=== PATIENT | male | born 1985 | race Caucasian/White ===

== ENCOUNTER 2016-12-31 15:29 | Emergency (ER) | payer OTHER ==
[2016-12-31 15:33] VITALS: BP 122/87; PULSE 81; TEMP 98; BMI 36.6
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
== END 2016-12-31 17:00 | disposition home or self-care (01) ==
LOC: JERFT 15:29
DX: Z48.02 Encounter for removal of sutures (principal)
CPT/HCPCS: 99281-25

== ENCOUNTER 2017-04-15 14:09 | Emergency (ER) | payer OTHER ==
[2017-04-15 14:14] VITALS: BP 138/96; PULSE 74; TEMP 98.3; BMI 38.2
--- NOTE | 2017-04-15 14:41 | PDOC ---
*Physical Exam - Vital Signs Last Vital Signs Temp Pulse Resp BP Pulse Ox 98.3 F 74 20 138/96 100 04/15/17 14:10 04/15/17 14:10 04/15/17 14:10 04/15/17 14:10 04/15/17 14:10
--- NOTE | 2017-04-15 15:17 | PDOC ---
History of Present Illness - General Chief Complaint: Chest Pain Stated Complaint: CHEST PAIN Time Seen by Provider: 04/15/17 14:31 History Source: Patient - History of Present Illness Presenting Symptoms: Chest Pain Timing/Duration: reports: intermittent Past History - Past Medical History Allergies/Adverse Reactions: Allergies Allergy/AdvReac Type Severity Reaction Status Date / Time No Known Allergies Allergy Verified 04/15/17 14:14 Home Medications: Ambulatory Orders NK [No Known Home Medication] 12/31/16 Other medical history: NONE - Psycho/Social/Smoking Cessation Hx Anxiety: No Suicidal Ideation: No Smoking History: Current every day smoker Number of Cigarettes Smoked Daily: 15 Information on smoking cessation initiated: Yes 'Breaking Loose' booklet given: 04/15/17 Hx Alcohol Use: Yes (SOCIAL) Drug/Substance Use Hx: No Substance Use Type: None Review of Systems - Review of Systems Constitutional: No: Chills, Fever, Unexplained wgt Loss Respiratory: No: Cough, Shortness of Breath Cardiac (ROS): Yes: Chest Pain. No: Lightheadedness, Palpitations, Syncope Neurological: No: Dizziness *Physical Exam - Vital Signs Last Vital Signs Temp Pulse Resp BP Pulse Ox 98.3 F 74 20 138/96 100 04/15/17 14:10 04/15/17 14:10 04/15/17 14:10 04/15/17 14:10 04/15/17 14:10 - Physical Exam General Appearance: Yes: Appropriately Dressed. No: Apparent Distress HEENT: positive: Normal Voice Neck: positive: Supple Respiratory/Chest: positive: Lungs Clear, Normal Breath Sounds. negative: Respiratory Distress Cardiovascular: positive: Regular Rate, S1, S2 Extremity: positive: Normal Inspection Integumentary: positive: Dry, Warm Neurologic: positive: Fully Oriented, Alert, Normal Mood/Affect Heart Score/ECG Review - ECG Intrepretation Comment:: 04/15/17 15:17 Twelve-lead EKG was performed and reviewed by me. There is normal sinus rhythm with a normal rate. The axis is normal. The intervals are normal. There are no ST or T wave abnormalities. Impression: Normal twelve-lead EKG ED Treatment Course - RADIOLOGY Radiology Studies Ordered: Category Date Time Status CHEST PA & LAT [RAD] Stat Radiology 04/15/17 14:46 Taken Medical Decision Making - Medical Decision Making 04/15/17 15:14 32-year-old male, current smoker, here with chest pain. Patient reports intermittent substernal chest pain that has been present for 1 month, comes on suddenly and resolves after 1 or 2 seconds. No exacerbating or alleviating factors. Denies any other symptoms. Has not seen a medical evaluation until day until today for unclear reasons. No recent travel See exam Recurrent CP x 1 month in smoker Unlikely ACS, PERCs out Stable and well zofia w/ unremarkable exam in ED -ekg -cxr -anticipate discharge w/ pmd f/u 04/15/17 15:20 G and chest x-ray unremarkable. Patient remains stable and asymptomatic in ER. DC with PMD follow-up. Smoking cessation strongly encouraged *DC/Admit/Observation/Transfer Diagnosis at time of Disposition: Chest pain Qualifiers: Chest pain type: unspecified Qualified Code(s): R07.9 - Chest pain, unspecified - Discharge Dispostion Disposition: HOME Condition at time of disposition: Good - Patient Instructions Printed Discharge Instructions: DI for Atypical Chest Pain, Tips to Help You Stop Smoking Additional Instructions: The cause of your chest pain is unclear at this time as your EKG and chest x- ray were both negative. Strongly consider quitting smoking to prevent complications in the future. Please follow-up with your primary care physician
--- NOTE | 2017-04-17 09:50 | EKG ---
Test Reason : Blood Pressure : / mmHG Vent. Rate : 071 BPM Atrial Rate : 071 BPM P-R Int : 138 ms QRS Dur : 090 ms QT Int : 352 ms P-R-T Axes : 055 065 050 degrees QTc Int : 382 ms NORMAL SINUS RHYTHM NORMAL ECG NO PREVIOUS ECGS AVAILABLE Confirmed by TREVON CROSS MD ([id number]) on 04/17/2017 9:49:53 AM Referred By: Confirmed By:TREVON CROSS MD
== END 2017-04-15 16:08 | disposition home or self-care (01) ==
LOC: JER 14:09
DX: R07.89 Other chest pain (principal); F17.210 Nicotine dependence, cigarettes, uncomplicated
CPT/HCPCS: 71020-TC; 93005; 93010; 99282-25

== ENCOUNTER 2018-12-24 22:39 | Emergency (ER) | payer OTHER ==
[2018-12-24 22:44] VITALS: TEMP 98.3; BMI 38.2
[2018-12-24] MEDS ORDERED: SODIUM CHLORIDE 0.9% 500 ML INFUS.BAG IV ONE (23:05)
[2018-12-24 23:27] LABS: BASO % 0.5 % (0-2.0); EOS % 1.7 % (0-4.5); HEMATOCRIT 43.9 % (35.4-49); HEMOGLOBIN 14.8 GM/dL (11.7-16.9); MCH 31.4 pg (25.7-33.7); MCHC 33.8 g/dl (32.0-35.9); MEAN CELL VOLUME 93.1 fl (80-96); MEAN PLT VOLUME 8.8 fl (7.5-11.1); MONO % 7.8 % (3.8-10.2); PLATELET COUNT 274 K/MM3 (134-434); RBC 4.72 M/mm3 (4.00-5.60); RDW 13.8 % (11.9-15.9); WHITE BLOOD COUNT 8.7 K/mm3 (4.0-10.0)
--- NOTE | 2018-12-24 23:31 | PDOC ---
History of Present Illness <Leroy Mendez - Last Filed: 12/24/18 23:21> <Rosie Chakraborty - Last Filed: 12/25/18 00:57> - General Chief Complaint: Shortness of Breath Stated Complaint: SHORTNESS OF BREATH Time Seen by Provider: 12/24/18 22:54 Past History - Past Medical History Asthma: No Cancer: No Cardiac Disorders: No CVA: No COPD: No CHF: No DVT: No Diabetes: No GI Disorders: No Disorders: No HTN: No Hypercholesterolemia: Yes Liver Disease: No Seizures: No Thyroid Disease: No - Suicide/Smoking/Psychosocial Hx Smoking History: Never smoked Have you smoked in the past 12 months: No Number of Cigarettes Smoked Daily: 15 Information on smoking cessation initiated: No 'Breaking Loose' booklet given: 04/15/17 Hx Alcohol Use: No Drug/Substance Use Hx: No Substance Use Type: None, Alcohol Hx Substance Use Treatment: Yes (new focus) <AndreaLeroy - Last Filed: 12/24/18 23:21> <Rosie Chakraborty - Last Filed: 12/25/18 00:57> - Past Medical History Allergies/Adverse Reactions: Allergies Allergy/AdvReac Type Severity Reaction Status Date / Time No Known Allergies Allergy Verified 12/24/18 22:44 Home Medications: Ambulatory Orders Simvastatin [Zocor] 10 mg PO HS 12/01/18 Review of Systems - Review of Systems Able to Perform ROS?: Yes Comments:: GENERAL/CONSTITUTIONAL: No fever or chills HEAD, EYES, EARS, NOSE AND THROAT: No ear pain or discharge. No sore throat CARDIOVASCULAR: No chest pain RESPIRATORY: Denies cough, hemoptysis GASTROINTESTINAL: No nausea, vomiting, diarrhea or constipation GENITOURINARY: No dysuria, frequency, or change in urination MUSCULOSKELETAL: No joint or muscle swelling or pain. No neck or back pain SKIN: No rash NEUROLOGIC: No headache, vertigo, loss of consciousness ENDOCRINE: No increased thirst. No abnormal weight change HEMATOLOGIC/LYMPHATIC: No anemia, easy bleeding, or history of blood clots ALLERGIC/IMMUNOLOGIC: No hives or skin allergy 12/24/18 23:21 Is the patient limited Yakut proficient: No <Leroy Mendez - Last Filed: 12/24/18 23:21> *Physical Exam - Vital Signs Last Vital Signs Temp Pulse Resp BP Pulse Ox 98.3 F 106 H 18 157/88 100 12/24/18 22:41 12/24/18 22:41 12/24/18 22:41 12/24/18 22:41 12/24/18 22:41 <Leroy Mendez - Last Filed: 12/24/18 23:21> - Vital Signs Last Vital Signs Temp Pulse Resp BP Pulse Ox 98.3 F 106 H 18 157/88 100 12/24/18 22:41 12/24/18 22:41 12/24/18 22:41 12/24/18 22:41 12/24/18 22:41 <Rosie Chakraborty - Last Filed: 12/25/18 00:57> ED Treatment Course - RADIOLOGY Radiology Studies Ordered: Category Date Time Status CHEST PA & LAT [RAD] Stat Radiology 12/24/18 23:20 Ordered <Leroy Mendez - Last Filed: 12/24/18 23:21> - LABORATORY CBC & Chemistry Diagram: 12/24/18 23:20 12/24/18 23:20 - ADDITIONAL ORDERS Additional order review: Laboratory Results 12/24/18 23:20 Sodium 139 Potassium 3.7 Chloride 106 Carbon Dioxide 27 Anion Gap 7 L BUN 17 Creatinine 1.1 Est GFR (CKD-EPI)AfAm 103.13 Est GFR (CKD-EPI)NonAf 88.98 Random Glucose 106 Calcium 9.1 Total Bilirubin 0.2 AST 21 ALT 36 Alkaline Phosphatase 65 Troponin I < 0.02 Total Protein 7.9 Albumin 4.3 12/24/18 23:20 RBC 4.72 MCV 93.1 MCHC 33.8 RDW 13.8 MPV 8.8 Neutrophils % 56.0 Lymphocytes % 34.0 Monocytes % 7.8 Eosinophils % 1.7 Basophils % 0.5 - Medications Given in the ED: ED Medications Discontinued Medications Generic Name Dose Route Start Last Admin Trade Name Freq PRN Reason Stop Dose Admin Sodium Chloride 1,000 ml 12/24/18 23:05 12/24/18 23:23 Normal Saline - IV 12/24/18 23:06 1,000 ml ONCE ONE Administration <Rosie Chakraborty - Last Filed: 12/25/18 00:57> *DC/Admit/Observation/Transfer <Leroy Mendez - Last Filed: 12/24/18 23:21> - Discharge Dispostion Decision to Admit order: No <ChakrabortyRosie orellana - Last Filed: 12/25/18 00:57> Diagnosis at time of Disposition: Stress at work, Overweight - Discharge Dispostion Disposition: HOME Condition at time of disposition: Improved - Referrals Referrals: Dominic Salazar MD [Primary Care Provider] - - Patient Instructions Printed Discharge Instructions: Eating a Diet Rich in Fruits and Vegetables - Post Discharge Activity Forms/Work/School Notes: Back to Work
[2018-12-25 00:10] LABS: ALBUMIN 4.3 g/dl (3.4-5.0); ALK PHOS 65 U/L (45-117); ANION GAP 7 MMOL/L (8-16); BILIRUBIN,TOTAL 0.2 mg/dL (0.2-1); BLOOD UREA NITROGEN 17 mg/dL (7-18); CALCIUM 9.1 mg/dL (8.5-10.1); CHLORIDE 106 mmol/L (98-107); CO2 27 mmol/L (21-32); CREATININE 1.1 mg/dL (0.55-1.3); GLUCOSE,RANDOM 106 mg/dL (74-106); POTASSIUM 3.7 mmol/L (3.5-5.1); SGOT/AST 21 U/L (15-37); SGPT/ALT 36 U/L (13-61); SODIUM 139 mmol/L (136-145); TOT PROT 7.9 g/dl (6.4-8.2)
[2018-12-25 01:29] VITALS: BP 112/76; PULSE 67
--- NOTE | 2018-12-25 03:16 | PDOC ---
Documentation entered by Jules Soto SCRIBE, acting as scribe for Rosie Chakraborty MD. Rosei Chakraborty MD: This documentation has been prepared by the ari, Jules Soto SCRIBE, under my direction and personally reviewed by me in its entirety. I confirm that the documentation accurately reflects all work, treatment, procedures, and medical decision making performed by me. Attending Attestation - Resident Resident Name: Leroy Mendez - ED Attending Attestation I have performed the following: I have examined & evaluated the patient, The case was reviewed & discussed with the resident, I agree w/resident's findings & plan - HPI HPI: 12/24/18 23:55 The patient is a 33 year old male with a significant past medical history who presents to the emergency department with lightheadedness since earlier this evening. The patient states that he was at home this evening sitting in the couch playing video games when he felt sudden onset of lightheadedness. The patient states that he stood up and sat back down to see if it would go away but it worsened. The patient states that he experienced some associated shortness of breath without chest pain. The patient states that he wanted to come in for further evaluation because he was concerned. He denies any episode like this in the past. He denies any other symptoms or complaints. - Physicial Exam PE: 12/25/18 00:53 Agree with resident exam. Pt is overweight, but he has no SOB, clear lung vee, [id number]; afebrile; abd soft and NT ND. Pt has normal neuro exam. - Medical Decision Making 12/25/18 00:54 Labs normal. EKG normal and CXR normal. Pt will be discharged home. He will be given a sick note for work tomorrow.
--- NOTE | 2018-12-25 15:29 | EKG ---
Test Reason : Blood Pressure : / mmHG Vent. Rate : 076 BPM Atrial Rate : 076 BPM P-R Int : 128 ms QRS Dur : 094 ms QT Int : 368 ms P-R-T Axes : 072 052 024 degrees QTc Int : 414 ms NORMAL SINUS RHYTHM NORMAL ECG WHEN COMPARED WITH ECG OF 15-APR-2017 14:20, NO SIGNIFICANT CHANGE WAS FOUND Confirmed by MD Gibson Daniel ([id number]) on 12/25/2018 3:29:23 PM Referred By: Confirmed By:Neil Gibson MD
== END 2018-12-25 01:28 | disposition home or self-care (01) ==
LOC: JER 22:39
DX: Z56.6 Other physical and mental strain related to work (principal); E66.3 Overweight; Z68.38 Body mass index [BMI] 38.0-38.9, adult
CPT/HCPCS: 36415; 71046-TC-FY; 80053; 84484; 85025; 93005; 93010; 99283-25

== ENCOUNTER 2021-03-07 14:59 | Emergency (ER) | payer OTHER ==
[2021-03-07 15:18] VITALS: BP 113/79; PULSE 76; TEMP 98.1; BMI 36.6
[2021-03-07 16:14] LABS: BASO % 0.7 % (0-2.0); EOS % 1.5 % (0-4.5); HEMATOCRIT 43.1 % (35.4-49); LYMPH % 28.8 % (8-40); MCH 31.8 pg (25.7-33.7); MCHC 34.8 g/dl (32.0-35.9); MEAN CELL VOLUME 91.6 fl (80-96); MEAN PLT VOLUME 8.5 fl (7.5-11.1); MONO % 9.2 % (3.8-10.2); NEUT % 59.8 % (42.8-82.8); PLATELET COUNT 248 10^3/uL (134-434); RBC 4.71 M/mm3 (4.00-5.60)
[2021-03-07 16:37] LABS: ALBUMIN 4.2 g/dl (3.4-5.0); CALCIUM 9.3 mg/dL (8.5-10.1)
[2021-03-07 16:38] LABS: BLOOD UREA NITROGEN 16.6 mg/dL (7-18)
[2021-03-07 16:41] LABS: CREATININE 1.1 mg/dL (0.55-1.3)
[2021-03-07 16:42] LABS: BILIRUBIN,TOTAL 0.4 mg/dL (0.2-1); TOT PROT 7.6 g/dl (6.4-8.2)
[2021-03-07] MEDS ORDERED: KETOROLAC TROMETHAMINE 30 MG/1 ML VIAL ONE (20:48)
== END 2021-03-07 20:55 | disposition home or self-care (01) ==
LOC: JERFT 14:59
PROC: 3E0233Z Introduction of Anti-inflammatory into Muscle, Percutaneous Approach (ICD-10-PCS; principal; 2021-03-07)
DX: K64.8 Other hemorrhoids (principal)
CPT/HCPCS: 36415; 74177-TC; 80053; 82272; 85025; 99285-25; Q9967

== ENCOUNTER 2022-03-18 16:51 | Emergency (ER) | payer OTHER ==
[2022-03-18 17:07] VITALS: BP 135/89; PULSE 73; RESP 18; TEMP 99; BMI 38.2
[2022-03-18] MEDS ORDERED: MAG HYDROX/AL HYDROX/SIMETH 30 ML UNIT-DOSE CUP PO ONE (17:12)
[2022-03-18] MEDS ORDERED: FAMOTIDINE 20 MG/50 ML IVPB 20 MG/50 ML MG IVPB ONE ×2 (17:24→17:30)
[2022-03-18] MEDS ORDERED: MAG HYDROX/AL HYDROX/SIMETH 30 ML UNIT-DOSE CUP ONE (17:24)
[2022-03-18 17:30] LABS: HEMATOCRIT 44.1 % (35.4-49); HEMOGLOBIN 15.5 G/dL (11.7-16.9); MCH 31.7 pg (25.7-33.7); MCHC 35.2 g/dl (32.0-35.9); MEAN CELL VOLUME 90.2 fl (80-96); MEAN PLT VOLUME 7.9 fl (7.5-11.1); PLATELET COUNT 283.9 10^3/uL (134-434); RBC 4.89 10^6/uL (4.00-5.60); RDW 14.3 % (11.9-15.9); WHITE BLOOD COUNT 8.2 10^3/uL (4.0-10.8)
[2022-03-18 17:45] LABS: ALBUMIN 4.3 g/dl (3.4-5.0); BILIRUBIN,TOTAL 0.6 mg/dl (0.2-1); CALCIUM 9.4 mg/dl (8.5-10); CREATININE 1.3 mg/dl (0.55-1.3); MAGNESIUM 1.8 mg/dL (1.8-2.4); TOT PROT 7.2 g/dl (6.4-8.2)
[2022-03-18 17:53] LABS: PLATELET ESTIMATE ADEQUATE
== END 2022-03-18 18:40 | disposition home or self-care (01) ==
LOC: FER 16:51
PROC: 3E033NZ Introduction of Analgesics, Hypnotics, Sedatives into Peripheral Vein, Percutaneous Approach (ICD-10-PCS; principal; 2022-03-18)
DX: R07.9 Chest pain, unspecified (principal)
CPT/HCPCS: 36415; 71045-TC-FY; 80053; 82550; 82553; 83735; 84484; 85027; 93005; 99284-25

== ENCOUNTER 2022-07-05 19:12 | Emergency (ER) | payer OTHER ==
[2022-07-05 19:16] VITALS: BP 128/87; PULSE 88; RESP 18; TEMP 98; BMI 38.2
[2022-07-05] MEDS ORDERED: DIPHTH,PERTUSS(ACELL),TET 0.5 ML DISP.SYRIN IM ONE ×2 (19:59→20:05)
== END 2022-07-05 20:07 | disposition home or self-care (01) ==
LOC: JERFT 19:12
PROC: 0HQEXZZ Repair Left Lower Arm Skin, External Approach (ICD-10-PCS; principal; 2022-07-05)
PROC: 3E0234Z Introduction of Serum, Toxoid and Vaccine into Muscle, Percutaneous Approach (ICD-10-PCS; 2022-07-05)
DX: S51.812A Laceration without foreign body of left forearm, initial encounter (principal); W26.0XXA Contact with knife, initial encounter
CPT/HCPCS: 12001-25; 90471; 90715; 99282-25